=== PATIENT | male | born 1980 | race African-American/Black ===

== ENCOUNTER 2017-12-18 22:06 | Emergency (ER) | payer OTHER ==
[~2017-12-18] VITALS: Ht 175.3 cm; Wt 64.9 kg
--- NOTE | 2017-12-18 22:07 | NUR ---
PT BIBRA FR 7-ELEVEN FOR INCREASED AGITATION, VERBALLY AGRESSIVE, POSSIBLE OD ON [place] SUBSTANCE, REQUIRING [employer] ASSISTANCE TO RESTRAIN PT. PT CONTINUES TO BE RESTLESS, AGITATED, YELLING, UNABLE TO ACCOUNT FOR OWN SAFETY, PLACED ON CONTINUOUS PULSE-OX W/ MONITORING, BED LOW TO GROUND, SIDERAILS UP FOR SAFETY, NEEDING CONTINUOUS VERBAL REDIRECTION.
[2017-12-18] MEDS ORDERED: LORAZEPAM INJ 2 MG/ML VIAL ONE (22:37)
--- NOTE | 2017-12-18 22:52 | NUR ---
BELINDA BEDSIDE WITH PT WHO IS IN CUSTODY. PT IS AAOX4. PT REFUSED MEDICATION PRESCRIBED BY MD. BY REFUSED TO GIVE URINE SAMPLE. PT REFUSED ALL MEDICAL TREATMENTS. PT STATES "I REFUSE EVERYTHING. JUST TAKE ME TO LONGTERM". PT REFUSED TO SIGN AMA PAPERWORK. MD MADE AWARE. STOREROOM ATTENDANT MADE AWARE. BELINDA MADE AWARE OF PT'S REFUSAL.
--- NOTE | 2017-12-18 22:54 | NUR ---
Patient does not wish to proceed with medical care recommended by Dr. KRISHNAN ). Patient given information related to possible complications, up to and including , which could occur as a result of leaving the hospital at this time. Patient verbalizes understanding of risks involved due to leaving against medical advice. Patient refused to sign AMA form.
[2017-12-18] MEDS: LORAZEPAM INJ 2 MG/ML VIAL IM ONE (22:57)
[2017-12-18 23:04] VITALS: BP 140/93
== END 2017-12-18 23:08 | disposition left against medical advice (07) ==
LOC: ER 22:08
DX: R45.1 Restlessness and agitation (principal); F10.10 Alcohol abuse, uncomplicated; Y90.9 Presence of alcohol in blood, level not specified
CPT/HCPCS: 99284; A4606; Z7610; J2060